=== PATIENT | female | born 1990 | race Caucasian/White ===

== ENCOUNTER 2017-03-02 11:30 | Inpatient (IN) | payer BC ==
[2017-03-02] MEDS ORDERED: RINGERS SOLUTION,LACTATED 1,000 ML IV ONE (12:10)
[2017-03-02] MEDS ORDERED: LIDOCAINE HCL 50 ML VIAL PERI PRN (12:10)
[2017-03-02] MEDS ORDERED: OXYTOCIN/DEXTROSE 5%-WATER 30 UNITS/500 ML BAG IV ONE (12:10)
[2017-03-02] MEDS ORDERED: ONDANSETRON HCL/PF 2 MG/ML VIAL IV PRN ×2 (12:10→21:44)
[2017-03-02] MEDS ORDERED: RINGERS SOLUTION,LACTATED 1,000 ML IV PRN (12:10)
--- NOTE | 2017-03-02 20:49 | PN ---
Progess Note - Interim Narrative: 03/02/17 20:47 Patient rating contractions as mild Vital signs stable. Pitocin at 12 mu/min. FHT: 130 baseline, reassuring Contractions q 2-3 min Cervix: 4/80/-2, AROM-clear Impression: Intrauterine at 38-4/7 weeks induction of labor for preeclampsia Plan: Continue present plan
[2017-03-02] MEDS ORDERED: NALOXONE HCL 1 MG/1 ML SYRG IV PRN (21:44)
[2017-03-02] MEDS ORDERED: BUPIVACAINE HCL/0.9 % NACL/PF 250 ML EP PRN (21:44)
[2017-03-02] MEDS ORDERED: fentaNYL CITRATE/PF 50 MCG/ML AMPUL IT SCH (21:45)
--- NOTE | 2017-03-02 22:18 | OR ---
Anesthesia Procedure Note - Anesthesia Procedure Note Narrative: Vital Signs - Last Taken Temp 36.9 C 03/02/17 21:46 Pulse 79 03/02/17 21:46 Resp 18 03/02/17 21:46 BP 133/88 03/02/17 21:46 Pulse Ox 98 03/02/17 21:46 03/02/17 22:17 ANESTHESIA PROCEDURE NOTE Date of Procedure: 03/02/2017 Time of procedure: 2149. Performed by: Ole Padgett CRNA [place] Helper: None. Preprocedure diagnosis: Active labor. Post procedure diagnosis: Same. Procedure: Insertion of labor epidural. Indications: The patient is a 26 -year-old multigravida female in active labor requesting labor epidural for pain management. Findings: See below. Details of the procedure: The patient was placed in a sitting position. Back was prepped with DuraPrep. Patient was then draped in a sterile fashion. Lidocaine 1% was infiltrated to the skin and subcutaneous tissues at the level of the L3 4 interspace. The epidural space was identified using a 18-gauge Tuohy needle with [id number] technique. 20 mcg fentanyl was given intrathecally using a 27 ga. spinal needle. Epidural catheter was inserted without difficulty. Negative test dose was elicited using 5 mL of 1.5% preservative-free lidocaine plus epinephrine 1 200,000. The epidural catheter was then taped and secured in place. EBL: Minimal. Fluids: N/A. Specimen: N/A. Post procedure condition: The patient tolerated the procedure well. No complications were noted. Thank you for this consultation. Lyman CRNA
--- NOTE | 2017-03-03 03:13 | OR ---
Operative Report - Dictated Report Narrative: Spontaneous vaginal delivery of viable male at 0242 on 03/03/2017 with Apgars 9 and 9, weighing 4033 g and ONI position. Cord clamping delayed approximately 1 minute Placenta delivered complete, intact, with three vessel cord Estimated blood loss: 200 mL responded to Pitocin 30 mU/m and 400 g of Cytotec rectally Lacerations: 5 cm second degree vaginal laceration repaired with 0 Vicryl and 3- 0 Vicryl Rapide History for MU Definition: * The number of deliveries resulting in a live the patient experienced prior to current hospitalization * The previous delivery of live twins or any live multiple gestation is considered one live event. *If primagravida or nulliparous is documented select zero for the number of previous live births. Live Events: 1
[2017-03-03] MEDS ORDERED: BISACODYL 10 MG SUPP.RECT RC PRN (03:16)
[2017-03-03] MEDS ORDERED: SENNOSIDES 8.6 MG TABLET PO PRN (03:16)
[2017-03-03] MEDS ORDERED: OXYTOCIN/DEXTROSE 5%-WATER 30 UNITS/500 ML BAG IV ONE (03:16)
[2017-03-03] MEDS ORDERED: GLYCERIN/WITCH HAZEL LEAF 40 APPL BOX TP PRN (03:16)
[2017-03-03] MEDS ORDERED: HYDROCORTISONE 30 APPL TUBE TP PRN (03:16)
[2017-03-03] MEDS ORDERED: IBUPROFEN 800 MG TABLET PO PRN (03:16)
[2017-03-03] MEDS ORDERED: BENZOCAINE/MENTHOL 81 SPRAY CAN TP PRN (03:16)
[2017-03-03] MEDS ORDERED: oxyCODONE HCL/ACETAMINOPHEN 1 TAB TABLET PO PRN (03:16)
[2017-03-03] MEDS: oxyCODONE HCL/ACETAMINOPHEN 1 TAB TABLET PO PRN ×3 (03:27→21:46)
[2017-03-03] MEDS: FERROUS SULFATE 325 MG TABLET PO SCH (09:17)
[2017-03-03] MEDS: DOCUSATE SODIUM 100 MG CAPSULE PO SCH ×2 (09:17→20:44)
[2017-03-03] MEDS: PRENATAL VIT#96/FERROUS FUM/FA 1 TAB TABLET PO SCH (09:17)
[2017-03-04] MEDS: oxyCODONE HCL/ACETAMINOPHEN 1 TAB TABLET PO PRN (04:08)
[2017-03-04] MEDS: PRENATAL VIT#96/FERROUS FUM/FA 1 TAB TABLET PO SCH (09:10)
[2017-03-04] MEDS: DOCUSATE SODIUM 100 MG CAPSULE PO SCH (09:10)
[2017-03-04] MEDS: FERROUS SULFATE 325 MG TABLET PO SCH (09:10)
--- NOTE | 2017-03-04 13:07 | PN ---
Subjective - Date and Time Seen Date: 03/04/17 Time: 13:05 Objective - Vitals Vitals: Last Vital Signs Temp 36.4 C L 03/04/17 08:00 Pulse 78 03/04/17 08:00 Resp 18 03/04/17 08:00 BP 120/72 03/04/17 08:00 Pulse Ox 99 03/04/17 08:00 Patient denies complaints. Specifically denies headache, visual changes, epigastric pain, or edema. Lochia wnl Abdomen - soft, nontender Uterus - firm, at umbilicus - 1 No calf tenderness Impression: day #1 - s/p spontaneous vaginal delivery. Preeclampsia- resolved Plan: Continue routine care. Discharge to home this evening with routine discharge instructions and preeclampsia precautions.
[2017-03-04 16:16] VITALS: BP 121/81
== END 2017-03-04 17:25 | disposition home or self-care (01) | DRG 775 ==
LOC: OB 11:30
PROVIDERS: ADMIT Obstetrics & Gynecology; ATTEND Obstetrics & Gynecology
PROC: 10E0XZZ Delivery of Products of Conception, External Approach (ICD-10-PCS; principal; 2017-03-03)
PROC: 0KQM0ZZ Repair Perineum Muscle, Open Approach (ICD-10-PCS; 2017-03-03)
PROC: 4A1HXCZ Monitoring of Products of Conception, Cardiac Rate, External Approach (ICD-10-PCS; 2017-03-03)
PROC: 3E033VJ Introduction of Other Hormone into Peripheral Vein, Percutaneous Approach (ICD-10-PCS; 2017-03-03)
PROC: 10907ZC Drainage of Amniotic Fluid, Therapeutic from Products of Conception, Via Natural or Artificial Opening (ICD-10-PCS; 2017-03-03)
PROC: 3E0S3CZ (ICD-10-PCS; 2017-03-03)
DX: O14.04 Mild to moderate pre-eclampsia, complicating childbirth (principal); O62.2 Other uterine inertia; O70.1 Second degree perineal laceration during delivery; Z79.82 Long term (current) use of aspirin; Z3A.39 39 weeks gestation of pregnancy; Z37.0 Single live birth